=== PATIENT | male | born 1950 | race Caucasian/White ===

== ENCOUNTER 2020-04-11 11:15 | Emergency (ER) | payer BC, MEDICARE, SELFPAY ==
--- NOTE | ~2020-04-11 | XR_ITS ---
EXAMINATION: XR chest 2V EXAM DATE: 04/11/2020 11:46 INDICATION: Chest discomfort, history high blood pressure. TECHNIQUE: Frontal and lateral projections of the chest obtained and reviewed. Comparison is made to prior examination from 03/24/2018. FINDINGS: Sternotomy wires with some breaks and fragmentation. Similar appearance to prior study. Th e lungs are clear. There are no pleural effusions. The cardiomediastinal silhouette is within [place] limits. There is no pneumothorax suspected. The bones and soft tissues are unremarkable. IMPRESSION: No acute cardiopulmonary findings. Reviewed, dictated and finalized at location B. [employer]
--- NOTE | 2020-04-11 11:17 | ECG_ITS ---
Measurements Intervals [place] Rate: 66 P: 40 TX: 227 QRS: -14 QRSD: 100 T: 126 QT: 386 QTc: 405 Interpretive Statements SINUS RHYTHM WITH FIRST DEGREE AV BLOCK BORDERLINE R WAVE PROGRESSION, ANTERIOR LEADS INFERIOR INFARCT, AGE INDETERMINATE T WAVE ABNORMALITY IN HIGH LATERAL LEADS- CONSIDER ISCHEMIA ABNORMAL ECG Electronically Signed On 04-11-2020 11:35:59 GRADUATE INTERN by Reinier De La Rosa D.O.
[2020-04-11 11:27] VITALS: BP 173/48; PULSE 67; RESP 21; TEMP 36.3; O2SAT 96
[2020-04-11 11:31] VITALS: PULSE 65
--- NOTE | 2020-04-11 11:40 | PC.NURSE ---
1135 - Patient self admin aspirin 81mg #1 this azach
[2020-04-11 11:43] LABS: Basophils Absolute Auto 0.1 K/mm3 (0.0-0.1); Basophils Percent Auto 0.5 % (0.2-1.2); Eosinophils Absolute Auto 0.2 K/mm3 (0-0.3); Hematocrit 48.6 % (42.0-52.0); Hemoglobin 16.1 g/dL (14.0-18.0); Immature Granulocyte Absolute 0.09 K/mm3 (0.00-0.031); Immature Granulocyte Percent A 0.8 % (0-0.5); Lymphocytes Absolute Auto 2.68 K/mm3 (0.9-3.2); Lymphocytes Percent Auto 23.1 % (18.3-44.2); Mean Corpuscular HGB Conc 33.1 g/dl (32-36); Mean Corpuscular Hemoglobin 30.7 pg (26-34); Mean Corpuscular Volume 92.7 fl (80-100); Mean Platelet Volume 10.6 fl (7.4-10.4); Monocytes Absolute Auto 1.3 K/mm3 (0.1-0.6); Monocytes Percent Auto 10.9 % (2.6-8.5); Neutrophils Absolute Auto 7.3 K/mm3 (1.3-6.7); Neutrophils Percent Auto 62.7 % (45.5-73.1); Platelet Count Result 203 k/mm3 (150-375); Red Blood Count 5.24 M/mm3 (4.6-6.20); Red Cell Distribution Width 14.5 % (11.5-14.5); White Blood Count 11.6 K/mm3 (4.5-10.0)
--- NOTE | 2020-04-11 11:51 | PC.NURSE ---
green top rejected per ray in lab, specimen hemolyzed; Krupa ZHOU aware.
[2020-04-11 11:52] LABS: INR 0.9; Prothrombin Time 12.8 Seconds (11.1-14.7)
[2020-04-11 12:14] LABS: Anion Gap 8 mmol/L (8-16); Blood Urea Nitrogen 21 mg/dL (9-20); Calcium 9.6 mg/dL (8.4-10.2); Carbon Dioxide 25 mmol/L (22-30); Chloride 110 mmol/L (98-107); Estimated CRCL calculation 60 ml/min; Estimated Glomerular Filt Rate 55; Glucose 127 mg/dL (75-110); Potassium 4.6 mmol/L (3.4-5.0); Sodium 143 mmol/L (137-145)
[2020-04-11 12:25] LABS: Troponin I 0.022 ng/mL (0.000-0.034)
--- NOTE | 2020-04-11 13:07 | ED.CHESTPAIN ---
HPI - Chest Pain General Chief Complaint: Chest Pain Stated Complaint: Chest Tightness Time Seen by Provider: 04/11/20 11:23 Source: patient Mode of arrival: ambulatory Limitations: no limitations History of Present Illness HPI narrative: 70-year-old male History of coronary artery disease and CABG States that his sternal incision did not heal 100% correctly and sometimes he gets pain related to that if he moves or lies on it wrong Today he had discomfort in that area when he woke up around 7 AM This continued after he went to work at [employer], and his boss noticed him more or less rubbing the uncomfortable area of his chest On questioning there he also complained that his right elbow felt like he hit it on something even though he had not Patient notes that when he originally presented prior to getting cath and subsequently a CABG most of his symptoms were in his right arm and his right elbow, so this represented a red flag and they sent him to the ER for evaluation No other associated symptoms such as shortness of breath palpitations diaphoresis nausea lightheadedness Just took his usual meds today but he does not have his list with him Pertinent past history: prior [place] Related Data Allergies Allergy/AdvReac Type Severity Reaction Status Date / Time No Known Allergies Allergy Unknown Verified 03/24/18 09:49 Review of Systems Review of Systems: All systems reviewed & are unremarkable except as noted in HPI and below Constitutional: Constitutional: Denies chills, Denies fatigue, Denies fever(s), Denies headache(s) and Denies weakness Eyes: Eyes: Reports no additional eye complaints and Denies change in vision ENT: Denies headache(s), Denies epistaxis, Denies nasal congestion and Denies sore throat Cardiovascular: Cardiovascular: Reports chest pain, Denies leg edema, Reports radiating jaw, neck or arm pain, Denies palpitations and Denies dyspnea Respiratory: Respiratory: Denies cough, Denies dyspnea and Denies wheezing Gastrointestinal: Gastrointestinal: Denies abdominal pain, Denies diarrhea, Denies nausea and Denies vomiting Genitourinary: Genitourinary: Denies hematuria, Denies dysuria and Denies urinary frequency Musculoskeletal: Musculoskeletal: Denies deformity, Reports arthralgias, Denies joint swelling, Denies muscle weakness and Denies numbness Integumentary/Breasts: Skin/Breast: Denies rash and Denies wounds Neurologic: Denies headache(s), Denies focal weakness, Denies numbness and Denies weakness Psychiatric: Psychiatric: Reports no additional psychiatric complaints Endocrine: Endocrine: Denies fatigue and Denies palpitations Hematologic/Lymphatic: Hematologic/Lymphatic: Denies easy bleeding and Denies easy bruising Allergic/Immunologic: Allergic/Immunologic: Denies wheezing Exam Const: General: no acute distress, well developed, alert and awake Nutritional Appearance: well nourished Orientation/consciousness: patient oriented x3 (alert) Limitations: no limitations HENMT: Head: normocephalic and atraumatic Ears: external ears normal General nose exam: No nasal discharge present and no epistaxis Face and sinus: face symmetric Eyes: Conjunctivae: conjunctivae normal Sclera: sclerae normal EOM: EOMs intact bilaterally Neck: Neck: normal visual inspection, supple and no JVD Chest: Chest palpation & inspection: deferred Other: There is tenderness at the right lower sternum and costochondral junction, and there is a diastases or incisional hernia in the upper abdomen Resp: Effort & Inspection: normal respiratory effort Auscultation: clear to auscultation bilaterally, no rales, no rhonchi, no wheezes and other (BS =) Cardio: Rate: regular rate Rhythm: regular rhythm Heart sounds: no gallops and no murmurs GI: Inspection: normal to inspection GI Palp: Yes Soft to palpation and No Tenderness to palpation present (GI) Back/Spine/Pelvis: Thoracic/Lumbar Spine: thoracic and lumbar spine normal t
== END 2020-04-11 17:58 | disposition home or self-care (01) ==
PROVIDERS: Emergency Medicine; Emergency Provider Emergency Medicine; PCP Internal Medicine Cardiovascular Disease
DX: R07.89 Other chest pain (principal); R94.31 Abnormal electrocardiogram [ECG] [EKG]
CPT/HCPCS: 36415; 71046; 80048; 84484; 85025; 85610; 85730; 93005; 99284

== ENCOUNTER 2020-05-27 10:00 | Emergency (ER) | payer BC, MEDICARE, SELFPAY ==
[2020-05-27 10:10] VITALS: BP 143/68; PULSE 60; RESP 20; TEMP 36.6; O2SAT 98
--- NOTE | 2020-05-27 10:30 | ECG_ITS ---
Measurements Intervals [place] Rate: 57 P: 50 ME: 244 QRS: 7 QRSD: 106 T: -17 QT: 441 QTc: 431 Interpretive Statements SINUS BRADYCARDIA WITH FIRST DEGREE AV BLOCK CONSIDER ANTERIOR INFARCT, AGE INDETERMINATE INFERIOR INFARCT, AGE INDETERMINATE ABNORMAL ECG Electronically Signed On 05-27-2020 14:26:59 CDT by Reinier De La Rosa D.O.
[2020-05-27 10:56] LABS: Basophils Absolute Auto 0.1 K/mm3 (0.0-0.1); Basophils Percent Auto 0.8 % (0.2-1.2); Eosinophils Absolute Auto 0.2 K/mm3 (0-0.3); Eosinophils Percent Auto 2.6 % (0-4.4); Hematocrit 50.4 % (42.0-52.0); Hemoglobin 16.7 g/dL (14.0-18.0); Immature Granulocyte Absolute 0.09 K/mm3 (0.00-0.031); Lymphocytes Absolute Auto 2.58 K/mm3 (0.9-3.2); Lymphocytes Percent Auto 28.5 % (18.3-44.2); Mean Corpuscular HGB Conc 33.1 g/dl (32-36); Mean Corpuscular Hemoglobin 30.5 pg (26-34); Mean Platelet Volume 10.6 fl (7.4-10.4); Monocytes Absolute Auto 1.1 K/mm3 (0.1-0.6); Monocytes Percent Auto 12.4 % (2.6-8.5); Neutrophils Percent Auto 54.7 % (45.5-73.1); Platelet Count Result 195 k/mm3 (150-375); Red Blood Count 5.48 M/mm3 (4.6-6.20); Red Cell Distribution Width 14.2 % (11.5-14.5); White Blood Count 9.1 K/mm3 (4.5-10.0)
[2020-05-27 11:05] LABS: Anion Gap 6 mmol/L (8-16); Blood Urea Nitrogen 21 mg/dL (9-20); Calcium 9.7 mg/dL (8.4-10.2); Carbon Dioxide 27 mmol/L (22-30); Chloride 109 mmol/L (98-107); Estimated CRCL calculation 58 ml/min; Estimated Glomerular Filt Rate 55; Glucose 139 mg/dL (75-110); Potassium 4.8 mmol/L (3.4-5.0); Sodium 142 mmol/L (137-145)
[2020-05-27 11:24] VITALS: BP 139/56; PULSE 57; RESP 16; O2SAT 98
--- NOTE | 2020-05-27 12:17 | ED.DIZZY ---
HPI - Dizziness General Chief Complaint: Dizziness Stated Complaint: dizziness Time Seen by Provider: 05/27/20 11:29 Source: patient and family Mode of arrival: ambulatory Limitations: no limitations History of Present Illness HPI Narrative: 70-year-old male History of hypertension, high cholesterol Reports that he woke up this morning around 530 or 6 to get ready to go to work and was dizzy He had slight nausea but did not throw up and did not report any other symptoms Specifically, no headache, no visual symptoms, no tinnitus, no vomiting, no weakness, no cp, no palpitations, no sob Any movement or change of position was exacerbating his dizziness and it improved if he sat still with his eyes closed At this time his symptoms are all completely resolved and cannot be elicited by any of the above maneuvers Related Data Home Medications Medication Instructions Recorded Confirmed amlodipine 10 mg PO DAILY 05/27/20 05/27/20 ezetimibe 10 mg PO DAILY 05/27/20 05/27/20 lisinopril 20 mg PO DAILY 05/27/20 05/27/20 rosuvastatin 40 mg PO DAILY 05/27/20 05/27/20 Allergies Allergy/AdvReac Type Severity Reaction Status Date / Time No Known Allergies Allergy Unknown Verified 05/27/20 10:12 Review of Systems Review of Systems: All systems reviewed & are unremarkable except as noted in HPI and below Constitutional: Constitutional: Reports no additional constitutional complaints, Denies chills, Denies fever(s) and Denies headache(s) Eyes: Eyes: Reports no additional eye complaints and Denies change in vision ENT: Reports dizziness, Denies headache(s) and Denies sore throat Cardiovascular: Cardiovascular: Denies chest pain, Denies rapid heart rate and Denies dyspnea Respiratory: Respiratory: Denies cough and Denies dyspnea Gastrointestinal: Gastrointestinal: Denies abdominal pain, Denies diarrhea and Denies vomiting Genitourinary: Genitourinary: Denies dysuria and Denies urinary frequency Musculoskeletal: Musculoskeletal: Denies deformity, Denies arthralgias, Denies joint swelling and Denies numbness Integumentary/Breasts: Skin/Breast: Denies rash and Denies wounds Neurologic: Denies headache(s), Denies focal weakness and Denies numbness Psychiatric: Psychiatric: Reports no additional psychiatric complaints Endocrine: Endocrine: Reports no additional endocrine complaints Hematologic/Lymphatic: Hematologic/Lymphatic: Reports no additional hematologic/lymphatic complaints Allergic/Immunologic: Allergic/Immunologic: Reports no additional allergic/immunologic complaints [facility] Social History Social History Gender identity (if verbalized by the patient): Male Exam Const: General: cooperative, no acute distress and alert Orientation/consciousness: patient oriented x3 (alert) HENMT: Head: normal to inspection, normocephalic and atraumatic Ears: external ears normal and TM's normal bilaterally General nose exam: no epistaxis Other: 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 Eyes: Conjunctivae: conjunctivae normal Pupils: Equal, round and reactive pupils present EOM: EOMs intact bilaterally Other: No nystagmus Neck: Neck: normal visual inspection, supple and no JVD Resp: Effort & Inspection: normal respiratory effort Auscultation: clear to auscultation bilaterally and other (BS =) Cardio: Rate: regular rate Rhythm: regular rhythm Heart sounds: no murmurs Skin: General skin exam: normal color and no rashes or lesions noted Neuro: General: patient oriented x3 (alert) and moves all extremities Cranial nerves: Yes Nystagmus not present Speech: normal speech Gait exam (Neuro): Normal gait present Other: Normal [id number], negative Romberg Extrem: General: normal to inspection Psych: Affect: normal affect Course Course Emergency Course: Discussed with patient that given his hearing loss and the transient nature of his symptoms that peripheral vertigo is his most likely diagnosi
[2020-05-27 12:19] VITALS: BP 132/65; PULSE 56
[2020-05-27 12:21] VITALS: BP 142/73; PULSE 58
[2020-05-27 12:23] VITALS: BP 145/81; PULSE 63
--- NOTE | 2020-05-27 12:58 | PC.NURSE ---
called chem and talked to lilly. Ordered a trop baseline at 12:56
[2020-05-27 13:22] LABS: Troponin I 0.014 ng/mL (0.000-0.034)
[2020-05-27 13:49] VITALS: BP 142/88; PULSE 84; RESP 16; O2SAT 98
== END 2020-05-27 13:55 | disposition home or self-care (01) ==
PROVIDERS: Emergency Provider Emergency Medicine; PCP Internal Medicine Cardiovascular Disease
DX: R42 Dizziness and giddiness (principal); I10 Essential (primary) hypertension; E78.00 Pure hypercholesterolemia, unspecified; I44.0 Atrioventricular block, first degree; R00.1 Bradycardia, unspecified; R94.31 Abnormal electrocardiogram [ECG] [EKG]
CPT/HCPCS: 36415; 80048; 84484; 85025; 93005; 99284

== ENCOUNTER 2021-09-01 19:43 | Observation (INO) | payer OTHER, MEDICARE, SELFPAY ==
[2021-09-01] VITALS (8 sets, daily range): BP systolic 123–148; BP diastolic 57–67; PULSE 62–72; RESP 16–26; TEMP 36.1–36.7; O2SAT 95–98; BMI 35.9
--- NOTE | ~2021-09-01 | XR_ITS ---
EXAMINATION: XR chest 2V Exam Date/Time: 09/01/2021 20:07 CDT HISTORY: MIDLOWER CP, HERNIA W/ BURNING SENSATTION HX CABG/STENTS Comparison: 04/11/2020, 03/24/2018. RESULT: Lines, tubes, and devices: Multiple fractured sternotomy wires, position unchanged given differences and technique. Lungs and pleura: Clear. Cardiomediastinal silhouette: Stable cardiomediastinal silhouette. Other: No acute osseous or upper abdominal finding. IMPRESSION: No acute cardiopulmonary process. Reviewed, dictated and finalized at location K.
--- NOTE | 2021-09-01 19:44 | ECG_ITS ---
Measurements Intervals [place] Rate: 72 P: 87 [place]: 91 QRS: -5 QRSD: 72 T: 87 QT: 369 QTc: 405 Interpretive Statements SINUS RHYTHM BORDERLINE AV CONDUCTION DELAY POOR R WAVE PROGRESSION, CONSIDER ANTERIOR INFARCT INFERIOR INFARCT, AGE INDETERMINATE BORDERLINE ST-T WAVE ABNORMALITY- HIGH LATERAL LEADS BASELINE WANDER- V1 ABNORMAL ECG Electronically Signed On 09-01-2021 23:21:27 CDT by Reinier De La Rosa D.O.
--- NOTE | 2021-09-01 19:52 | ECG_ITS ---
Measurements Intervals [place] Rate: 68 P: 104 [place]: 220 QRS: 203 QRSD: 101 T: 72 QT: 393 QTc: 420 Interpretive Statements SINUS RHYTHM WITH FIRST DEGREE AV BLOCK ARM LEADS REVERSED BORDERLINE R WAVE PROGRESSION, ANTERIOR LEADS INFERIOR INFARCT, AGE INDETERMINATE ABNORMAL ECG Electronically Signed On 09-01-2021 23:22:34 CDT by Reinier De La Rosa D.O.
[2021-09-01 20:07] LABS: Basophils Absolute Auto 0.1 K/mm3 (0.0-0.1); Basophils Percent Auto 0.7 % (0.2-1.2); Eosinophils Absolute Auto 0.3 K/mm3 (0-0.3); Eosinophils Percent Auto 3.2 % (0-4.4); Hematocrit 47.6 % (42.0-52.0); Hemoglobin 15.1 g/dL (14.0-18.0); Immature Granulocyte Absolute 0.15 K/mm3 (0.00-0.031); Immature Granulocyte Percent A 1.5 % (0-0.5); Lymphocytes Absolute Auto 3.04 K/mm3 (0.9-3.2); Lymphocytes Percent Auto 30.5 % (18.3-44.2); Mean Corpuscular HGB Conc 31.7 g/dl (32-36); Mean Corpuscular Hemoglobin 28.9 pg (26-34); Mean Corpuscular Volume 91.2 fl (80-100); Mean Platelet Volume 10.5 fl (7.4-10.4); Monocytes Absolute Auto 1.2 K/mm3 (0.1-0.6); Neutrophils Absolute Auto 5.2 K/mm3 (1.3-6.7); Neutrophils Percent Auto 52.1 % (45.5-73.1); Platelet Count Result 230 k/mm3 (150-375); Red Blood Count 5.22 M/mm3 (4.6-6.20); Red Cell Distribution Width 15.7 % (11.5-14.5)
[2021-09-01 20:17] LABS: INR 1.1; Prothrombin Time 13.8 Seconds (11.1-14.7)
[2021-09-01 20:18] LABS: Alanine Aminotransferase 26 U/L (6-50); Albumin Level 4.3 g/dL (3.5-5.1); Alkaline Phosphatase 81 U/L (38-126); Anion Gap 7 mmol/L (8-16); Aspartate Amino Transferase 27 U/L (17-59); Bilirubin,Total 0.2 mg/dL (0.2-1.3); Blood Urea Nitrogen 25 mg/dL (9-20); Calcium 8.7 mg/dL (8.4-10.2); Carbon Dioxide 22 mmol/L (22-30); Chloride 112 mmol/L (98-107); Estimated Glomerular Filt Rate 50; Glucose 218 mg/dL (65-110); Lipase 101 U/L (23-300); Partial Thromboplastin Time 38.4 SECONDS (22.3-36.8); Potassium 4.8 mmol/L (3.4-5.0); Sodium 141 mmol/L (137-145)
[2021-09-01 20:29] LABS: Troponin I 0.021 ng/mL (0.000-0.034)
[2021-09-01] MEDS: ASPIRIN 81 MG CHEWABLE TABLET 324 MG PO (20:46)
--- NOTE | 2021-09-01 21:04 | ED.GENADULT ---
HPI - General Adult General Chief complaint: Chest Pain Stated complaint: chest pain Time Seen by Provider: 09/01/21 20:54 History of Present Illness HPI narrative: Patient 71-year-old gentleman who presents the emergency department with chief complaint of chest burning. Patient reports that he has history of cardiac disease and also has history of a hiatal hernia the patient states that he has had a bypass and has had stents before in the past the patient states over the last week he has been having intermittent episodes of a burning-like sensation in the epigastric region/low chest patient states that it is improved whenever he belches and spontaneously starts on its own. Patient states that for about a week he has been having the symptoms and that this afternoon it became pretty well constant has been ongoing for several hours. Patient reports this feels different from whenever he has had issues with his heart in the past. Related Data Home Medications Medication Instructions Recorded Confirmed amlodipine 10 mg tablet 10 mg PO DAILY 05/27/20 05/27/20 ezetimibe 10 mg tablet 10 mg PO DAILY 05/27/20 05/27/20 lisinopril 20 mg tablet 20 mg PO DAILY 05/27/20 05/27/20 rosuvastatin 40 mg tablet 40 mg PO DAILY 05/27/20 05/27/20 Allergies Allergy/AdvReac Type Severity Reaction Status Date / Time No Known Allergies Allergy Unknown Verified 09/01/21 20:46 Review of Systems Review of Systems: A 10 system review of systems was completed on the patient and is negative except for what is stated in the HPI. Nursing and ancillary documentation was reviewed. [facility] Social History Social History Gender identity (if verbalized by the patient): Male Exam Narrative: GENERAL: Well-appearing, well-nourished, and in no acute distress. HEAD: Normocephalic, atraumatic. EYES: PERRLA and EOMI. ENT: Nares clear, no rhinorrhea or epistaxis. Mucous membranes moist. NECK: Supple. CHEST: Clear to auscultation. No respiratory distress. HEART: Regular rate and rhythm. No murmur heard. Normal peripheral pulses. ABDOMEN: Soft, nontender, nondistended, normal active bowel sounds. EXTREMITIES: Normal range of motion. No edema. SKIN: Warm, dry, no rash. NEURO: No focal deficits. Alert and oriented x3. PSYCH: Normal mood and affect. Course Course Emergency Course: EKG shows a sinus rhythm rate of 68 there is J-point elevation and nonspecific ST segment abnormality Patient's initial troponin is below the positive cutoff given the patient's significant past medical history and risk factors the patient has a heart score of 5. Given this the patient will be admitted for observation Vital Signs Vital signs: Vital Signs Temperature 36.7 C 09/01/21 19:47 Pulse Rate 72 09/01/21 19:47 Respiratory Rate 16 09/01/21 19:47 Blood Pressure 148/66 H 09/01/21 19:47 Pulse Oximetry 98 09/01/21 19:47 Oxygen Delivery Room Air 09/01/21 19:47 Temperature 36.7 C 09/01/21 19:47 Pulse Rate 67 09/01/21 20:45 Respiratory Rate 26 H 09/01/21 20:45 Blood Pressure 123/57 L 09/01/21 20:45 Pulse Oximetry 95 09/01/21 20:45 Oxygen Delivery Room Air 09/01/21 19:47 Medical Decision Making Vital Signs Vital Signs: Vital Signs Temperature 36.7 C 09/01/21 19:47 Pulse Rate 72 09/01/21 19:47 Respiratory Rate 16 09/01/21 19:47 Blood Pressure 148/66 H 09/01/21 19:47 Pulse Oximetry 98 09/01/21 19:47 Oxygen Delivery Room Air 09/01/21 19:47 Temperature 36.7 C 09/01/21 19:47 Pulse Rate 67 09/01/21 20:45 Respiratory Rate 26 H 09/01/21 20:45 Blood Pressure 123/57 L 09/01/21 20:45 Pulse Oximetry 95 09/01/21 20:45 Oxygen Delivery Room Air 09/01/21 19:47 Lab Data Result diagrams: 09/01/21 19:59 09/01/21 19:59 Labs: Lab Results 09/01/21 09/01/21 09/01/21 Range/Units 19:59 19:59 19:59 WBC 10
[2021-09-01] MEDS: BELLADONNA ALK/PHENOB ELIX 10 ML, MAG HYDROX/ALUMINUM HYD/SIMETH 30 ML, LIDOCAINE HCL 2... PO (21:09)
--- NOTE | 2021-09-01 22:35 | PC.NURSE ---
This patient, Brandon Miller Jr., was admitted to IMU Room 213-01 at 2230. Patient/family oriented to hospital policies and general routines including ID bracelet, bed and alarms, visiting hours, pain management, procedures, bathroom and other care routines, personal items, smoking policy, room service/diet, and visiting hours. Information on how to activate the Rapid Response Team has been discussed. Patient/Family are encouraged to report perceived risks to care and to ask questions if they do not understand what they are told or what they should do.
[2021-09-01 23:45] LABS: Troponin I 0.026 ng/mL (0.000-0.034)
[2021-09-02] VITALS: PULSE 60; O2SAT 96
--- NOTE | 2021-09-02 00:34 | PM.IMHP ---
H&P: HPI History of Present Illness Date/Time: 09/02/21 00:34 Chief Complaint: Chest discomfort. Narrative: This is a 71-year-old male with past medical history significant for coronary artery disease status post coronary artery bypass graft, hypertension, dyslipidemia, tobacco dependence patient smokes half a pack of cigarettes daily. Patient presents to the emergency room due to chest discomfort explains feels like indigestion denies any lightheadedness, dizziness, shortness of breath, PND, orthopnea, calves pain, syncope or near syncope, no chest pain with activity, no fevers, no chills, no pedal swelling no ankle swelling no leg swelling, patient was doing his job which is very light activity, has been in his usual state of health up until this time pain is nonradiating, is constant, denies any pounding of the chest or fluttery feeling. [facility] Social History Social History Smoking status: Never smoker Alcohol intake: never Substance use: never Gender identity (if verbalized by the patient): Male Spiritual care concerns: No Meds Home Medications and Allergies Home Medications Medication Instructions Recorded Confirmed Type amlodipine 10 mg tablet 10 mg PO DAILY 05/27/20 09/01/21 History ezetimibe 10 mg tablet 10 mg PO DAILY 05/27/20 09/01/21 History lisinopril 20 mg tablet 20 mg PO DAILY 05/27/20 09/01/21 History rosuvastatin 40 mg tablet 40 mg PO DAILY 05/27/20 09/01/21 History Allergies Allergy/AdvReac Type Severity Reaction Status Date / Time No Known Allergies Allergy Unknown Verified 09/01/21 20:46 Vital Signs Vital Signs - 24 hr 09/01/21 19:47 09/01/21 20:45 09/01/21 21:52 Temperature 98.1 F Pulse Rate 72 67 63 Respiratory Rate 16 26 H 22 H Blood Pressure 148/66 H 123/57 L Pulse Oximetry 98 95 96 Oxygen Delivery Room Air 09/01/21 22:01 09/01/21 22:14 09/01/21 22:35 Temperature 97 F L Pulse Rate 63 62 Respiratory Rate 22 H 20 Blood Pressure 130/67 147/64 H Pulse Oximetry 96 96 Oxygen Delivery 09/01/21 22:32 09/01/21 22:51 Temperature Pulse Rate 70 Respiratory Rate Blood Pressure Pulse Oximetry 96 Oxygen Delivery Room Air H&P: Results Labs Labs: Short CBC 09/01/21 Range/Units 19:59 WBC 10.0 (4.5-10.0) K/mm3 Hgb 15.1 (14.0-18.0) g/dL Hct 47.6 (42.0-52.0) % Plt Count 230 (150-375) k/mm3 BMP 09/01/21 19:59 Sodium 141 Potassium 4.8 Chloride 112 H Carbon Dioxide 22 BUN 25 H Creatinine 1.40 H Glucose 218 H Calcium 8.7 Cardiac Enzymes 09/01/21 09/01/21 Range/Units 19:59 22:56 Troponin I 0.021 0.026 D (0.000-0.034) ng/mL Liver Function 09/01/21 Range/Units 19:59 Total Bilirubin 0.2 (0.2-1.3) mg/dL AST 27 (17-59) U/L ALT 26 (6-50) U/L Alkaline Phosphatase 81 (38-126) U/L Albumin 4.3 (3.5-5.1) g/dL Assessment and Plan Assessment and plan (1) Chest discomfort: Code(s): R07.89 - Other chest pain Status: Acute Assessment and Plan: Admit to IMU Serial cardiac enzymes Continue to monitor EKG reviewed Cardiology consult (2) Coronary artery disease involving autologous artery coronary bypass graft: Code(s): I25.810 - Atherosclerosis of coronary artery bypass graft(s) without angina pectoris Status: Acute Assessment and Plan: Patient is status post coronary artery bypass graft roughly a year and half ago Continue home meds Continue to monitor (3) Tobacco dependence: Code(s): F17.200 - Nicotine dependence, unspecified, uncomplicated Status: Acute Assessment and Plan: Nicotine patch as needed
[2021-09-02 02:00] VITALS: PULSE 61
[2021-09-02 03:00] LABS: Troponin I 0.027 ng/mL (0.000-0.034)
[2021-09-02 04:00] VITALS: BP 141/64; PULSE 72; PULSE 98; RESP 20; TEMP 36.6; O2SAT 98
[2021-09-02] MEDS: ENOXAPARIN 120 MG/0.8 ML SYRINGE 105 MG SUB-Q (04:39)
[2021-09-02 06:00] VITALS: PULSE 63
[2021-09-02 08:00] VITALS: BP 146/55; PULSE 54; PULSE 56; RESP 16; TEMP 36.1; O2SAT 99
--- NOTE | 2021-09-02 08:56 | PM.CNCAR ---
Assessment and Plan Assessment and plan (1) Chest pain: Code(s): R07.9 - Chest pain, unspecified Status: Acute (2) Coronary artery disease involving autologous artery coronary bypass graft: Code(s): I25.810 - Atherosclerosis of coronary artery bypass graft(s) without angina pectoris Status: Acute Plan This is a 71-year-old man known to have coronary disease with previous myocardial infarction. He underwent surgical revascularization several years ago and has been doing relatively well since then. He enters the hospital with symptoms that are not suggestive of or concerning for myocardial ischemia in my opinion. His symptoms are not exertional they are likely from his hiatal hernia as they are relieved with belching. No objective evidence of acute coronary syndrome. I do not believe he needs to remain hospitalized for ischemia workup. He has regular follow-up in our office already scheduled with my partner. He can be discharged home at this point in my opinion. Igor Mijares MD [facility] History of Present Illness History of Present Illness Consult date/time: 09/02/21 08:56 Consult reason: chest pain Reason For Visit: Chest Pain Narrative: This is a 71-year-old man I am seeing at the request of the hospitalist because of some chest pain with which he was seen in the emergency room last evening and then admitted to IMU overnight. He feels well this morning and does not have any complaints. Yesterday he noticed a burning like low substernal to epigastric discomfort that started while he was at work. He has been having episodes like this off and on for about a week or 2. The episodes seem to be relieved with belching and rubbing the epigastrium. He has a history of heart disease so when this occurred yesterday while he was at work he decided to come to the emergency room in the evening and get evaluated. The patient has no radiation of this pain to any other location it is not associated with diaphoresis or air hunger. He was not greatly concerned this was is cardiac pain but given his known history he came in for evaluation.. He states that he is known to have coronary artery disease for something like 12/13 years. He states that he had a previous myocardial infarction and has had several previous percutaneous revascularization procedures done. About 3 years ago he states he was referred for surgical revascularization which was done over at [facility]. He has not had any card your problems since then that he can recall. He says he follows regularly in the office with my partner, Dr. Ansari. He not having any orthopnea PND or edema he has not had any palpitations nor syncope. His electrocardiogram in the hospital shows sinus rhythm with evidence of previous inferior infarction. He has 3 troponin sets that are normal. Review of Systems Constitutional: Constitutional: Reports no additional constitutional complaints Eyes: Eyes: Reports no additional eye complaints ENT: Reports system reviewed and no additional complaints, except as documented Cardiovascular: Cardiovascular: Reports as per HPI Respiratory: Respiratory: Reports no additional respiratory complaints Gastrointestinal: Gastrointestinal: Reports as per HPI Musculoskeletal: Musculoskeletal: Reports no additional musculoskeletal complaints Integumentary/Breasts: Skin/Breast: Reports system reviewed and no additional complaints, except as docu Neurologic: Reports system reviewed and no additional complaints, except as documented Endocrine: Endocrine: Reports no additional endocrine complaints Hematologic/Lymphatic: Hematologic/Lymphatic: Reports no additional hematologic/lymphatic complaints Allergic/Immunologic: Allergic/Immunologic: Reports no additional allergic/immunologic complaints [facility] Social History Social History Smoking status: Never smoker Alc
--- NOTE | 2021-09-02 10:00 | PC.NURSE ---
In anticipation of discharge, patient prefers to take daily medications upon return home.
--- NOTE | 2021-09-02 10:27 | PM.DS ---
DS: Admitting Diagnosis Discharge Date 09/02/2021 Admitting Diagnosis Chest pain DS: Discharge Diagnosis Discharge Diagnosis (1) Chest discomfort: Code(s): R07.89 - Other chest pain Status: Acute Assessment and Plan: Epigastric in origin. She had cardiac enzyme was done which came back negative. Symptoms are atypical and suggestive more GI origin and/or related to his umbilical hernia. He has status post CABG chest wall has not completely healed and noted to have non union his surgical incision wound. There is also associated epigastric area hernia with diastasis Add Pepcid at bedtime. Escalate to Prilosec of symptoms not related with this. Cardiology consulted and recommendations reviewed. He has follow-up appointment with head lineman as an outpatient basis. No need for ischemic workup because of atypical pain. (2) Coronary artery disease involving autologous artery coronary bypass graft: Code(s): I25.810 - Atherosclerosis of coronary artery bypass graft(s) without angina pectoris Status: Acute Assessment and Plan: Patient is status post coronary artery bypass graft roughly a year and half ago Continue home meds Continue to monitor Lost follow-up with cardiothoracic surgeon. Lives in [place] and will provide information about the cardiothoracic surgeon he can follow-up with at discharge (3) Tobacco dependence: Code(s): F17.200 - Nicotine dependence, unspecified, uncomplicated Status: Acute Assessment and Plan: Nicotine patch as needed DS: Summary Hospital Course Hospital Course: See above Time Spent with Patient Time attestation: Total time spent providing and/or coordinating discharge services: 40 minutes Exam Narrative: GENERAL: The patient is well developed, not in acute distress HEENT: Nonicteric sclerae, PERRLA, EOMI. Oropharynx clear. Moist mucous membranes. Conjunctivae appear well perfused. CHEST: Chest wall is nontender. Midline chest wall Surgical incision for CABG noted with nonhealing with epigastric hernia noted HEART: Regular rate and rhythm without murmur, rubs, or gallops LUNGS: Clear to auscultation bilaterally. no respiratory distress ABDOMEN: Soft, positive bowel sounds, non-tender, no organomegaly. SKIN: No rash, no excessive bruising, petechiae, or purpura. NEUROLOGIC: Cranial nerves II-XII intact, alert and oriented x 3, no gross motor deficits EXTREMITIES: no edema, cyanosis or clubbing Extrem: General: normal exam except as noted and no edema DS: Data Data Completed and Pending Labs on day of discharge: Labs from last 24 hours 09/02/21 09/01/21 09/01/21 02:05 22:56 19:59 WBC RBC Hgb Hct MCV MCH MCHC RDW Plt Count MPV Immature Gran % (Auto) Neut % (Auto) Lymph % (Auto) [place] % (Auto) Eos % (Auto) Baso % (Auto) Lymph # (Auto) [place] # (Auto) Eos # (Auto) Baso # (Auto) Abs Immat Gran (auto) Absolute Neuts (auto) Absolute Nucleated RBC Nucleated RBC % PT INR APTT Sodium 141 Potassium 4.8 Chloride 112 H Carbon Dioxide 22 Anion Gap 7 L BUN 25 H Creatinine 1.40 H Estim Creat Clear Calc Not Reportable Estimated GFR 50 L Glucose 218 H Calcium 8.7 Total Bilirubin 0.2 AST 27 ALT 26 Alkaline Phosphatase 81 Troponin I 0.027 0.026 D 0.021 Total Protein 7.0 Albumin 4.3 Lipase 101 09/01/21 09/01/21 19:59 19:59 WBC 10.0 RBC 5.22 Hgb 15.1 Hct 47.6 MCV 91.2 MCH 28.9 MCHC 31.7 L RDW 15.7 H Plt Count 230 MPV 10.5 H Immature Gran % (Auto) 1.5 H Neut % (Auto) 52.1 Lymph % (Auto) 30.5 [place] % (Auto) 12.0 H Eos % (Auto) 3.2 Baso % (Auto) 0.7 Lymph # (Auto) 3.04 [place] # (Auto) 1.2 H Eos # (Auto) 0.3 Baso # (Auto) 0.1 Abs Immat Gran (auto) 0.15 H Absolute Neuts (auto) 5.2 Absolute Nucleated RBC 0.0 Nucleated RBC %
== END 2021-09-02 11:01 | disposition home or self-care (01) ==
LOC: ANHED 21:45 → ANHIMU 21:51
PROVIDERS: Emergency Medicine; Admitting Provider Internal Medicine; Emergency Provider Emergency Medicine; PCP Internal Medicine Cardiovascular Disease; Visit Provider Internal Medicine
DX: R07.89 Other chest pain (principal); I25.810 Atherosclerosis of coronary artery bypass graft(s) without angina pectoris; F17.210 Nicotine dependence, cigarettes, uncomplicated; I25.2 Old myocardial infarction; K44.9 Diaphragmatic hernia without obstruction or gangrene; I10 Essential (primary) hypertension; E78.5 Hyperlipidemia, unspecified; R79.89 Other specified abnormal findings of blood chemistry; I44.0 Atrioventricular block, first degree; I45.89 Other specified conduction disorders; R94.31 Abnormal electrocardiogram [ECG] [EKG]; Z79.82 Long term (current) use of aspirin; Z79.899 Other long term (current) drug therapy; T81.89XA Other complications of procedures, not elsewhere classified, initial encounter; Y83.8 Other surgical procedures as the cause of abnormal reaction of the patient, or of later complication, without mention of misadventure at the time of the procedure
CPT/HCPCS: 36415; 71046; 80053; 83690; 84484; 85025; 85610; 85730; 93005; 96372; 99285; A9270; G0378; J1650

== ENCOUNTER 2021-11-10 07:20 | Emergency (ER) | payer OTHER, MEDICARE, SELFPAY ==
--- NOTE | ~2021-11-10 | XR_ITS ---
XR chest 2V 11/10/2021 08:24 Indication: Chest pain. Right scapular pain. Procedure: 2 view chest Comparison: Comparison to multiple prior studies sequentially, with oldest reviewed study dated 02/2015. Findings: Status post median sternotomy for CABG. Heart size normal. No focal air space disease, pulm onary edema, pleural effusion or suspected pneumothorax. No acute osseous abnormality. Impression: 1: No acute cardiopulmonary disease. Reviewed, dictated and finalized at location A. Impression: 1: No acute cardiopulmonary disease.
[2021-11-10 07:24] VITALS: BP 160/68; PULSE 63; RESP 16; O2SAT 98
--- NOTE | 2021-11-10 08:00 | ECG_ITS ---
Measurements Intervals [place] Rate: 56 P: 68 NH: 235 QRS: -23 QRSD: 104 T: 126 QT: 432 QTc: 420 Interpretive Statements SINUS BRADYCARDIA WITH FIRST DEGREE AV BLOCK ANTERIOR INFARCT, AGE INDETERMINATE INFERIOR INFARCT, AGE INDETERMINATE ST-T WAVE ABNORMALITY IN HIGH LATERAL LEADS- CONSIDER ISCHEMIA BASELINE ARTIFACT- I, III, V2 ABNORMAL ECG COMPARED TO ECG 09/01/2021 19:54:42 SINUS BRADYCARDIA NOW PRESENT Electronically Signed On 11-10-2021 8:19:09 CDT by Reinier De La Rosa D.O.
--- NOTE | 2021-11-10 08:21 | PC.NURSE ---
pt to XRAY at this time.
[2021-11-10 08:26] LABS: Basophils Absolute Auto 0.1 K/mm3 (0.0-0.1); Basophils Percent Auto 0.8 % (0.2-1.2); Eosinophils Absolute Auto 0.3 K/mm3 (0-0.3); Eosinophils Percent Auto 3.3 % (0-4.4); Hematocrit 49.2 % (42.0-52.0); Hemoglobin 15.9 g/dL (14.0-18.0); Lymphocytes Absolute Auto 2.67 K/mm3 (0.9-3.2); Lymphocytes Percent Auto 25.8 % (18.3-44.2); Mean Corpuscular HGB Conc 32.3 g/dl (32-36); Mean Corpuscular Hemoglobin 29.8 pg (26-34); Mean Corpuscular Volume 92.3 fl (80-100); Mean Platelet Volume 10.3 fl (7.4-10.4); Monocytes Absolute Auto 1.4 K/mm3 (0.1-0.6); Neutrophils Absolute Auto 5.8 K/mm3 (1.3-6.7); Neutrophils Percent Auto 56.1 % (45.5-73.1); Platelet Count Result 207 k/mm3 (150-375); Red Blood Count 5.33 M/mm3 (4.6-6.20); Red Cell Distribution Width 15.2 % (11.5-14.5); White Blood Count 10.4 K/mm3 (4.5-10.0)
[2021-11-10 08:37] LABS: Prothrombin Time 13.2 Seconds (11.1-14.7)
[2021-11-10 08:38] LABS: Partial Thromboplastin Time 38.2 SECONDS (22.3-36.8)
[2021-11-10 08:46] LABS: Alanine Aminotransferase 20 U/L (6-50); Albumin Level 4.4 g/dL (3.5-5.1); Alkaline Phosphatase 76 U/L (38-126); Anion Gap 8 mmol/L (8-16); Aspartate Amino Transferase 22 U/L (17-59); Bilirubin,Total 0.4 mg/dL (0.2-1.3); Blood Urea Nitrogen 13 mg/dL (9-20); Carbon Dioxide 27 mmol/L (22-30); Chloride 104 mmol/L (98-107); Estimated CRCL calculation 59 ml/min; Estimated Glomerular Filt Rate 50; Glucose 128 mg/dL (65-110); Potassium 4.3 mmol/L (3.4-5.0); Sodium 139 mmol/L (137-145)
[2021-11-10 08:57] LABS: Troponin I 0.024 ng/mL (0.000-0.034)
[2021-11-10] MEDS: KETOROLAC 15 MG/ML VIAL (*BKC) IV PUSH (09:02)
[2021-11-10 09:21] VITALS: BP 157/63; PULSE 61; RESP 20; O2SAT 97
--- NOTE | 2021-11-10 09:23 | ED.GENADULT ---
HPI - General Adult General Chief complaint: Extremity Problem,Nontraumatic Stated complaint: R UPPER BACK/ARM PAIN Time Seen by Provider: 11/10/21 07:25 History of Present Illness HPI narrative: Patient is a 71-year-old male who presents ER with pain in his right shoulder. Began this morning and radiates down his arm. Woke up with it at 12 AM. He does do a lot of physical labor but cannot remember an actual injury. He has history of heart disease and sees Dr. Ansari. Because of his history of heart disease he went to be evaluated. No chest pain or chest pressure. No exertional chest discomfort. No diaphoresis or dyspnea. Has not tried any pain medication. Related Data Home Medications Medication Instructions Recorded Confirmed amlodipine 10 mg tablet 10 mg PO DAILY 05/27/20 09/01/21 ezetimibe 10 mg tablet 10 mg PO DAILY 05/27/20 09/01/21 lisinopril 20 mg tablet 20 mg PO DAILY 05/27/20 09/01/21 rosuvastatin 40 mg tablet 40 mg PO DAILY 05/27/20 09/01/21 Allergies Allergy/AdvReac Type Severity Reaction Status Date / Time No Known Allergies Allergy Unknown Verified 11/10/21 07:29 Review of Systems Review of Systems: All systems reviewed & are unremarkable except as noted in HPI and below Constitutional: Constitutional: Denies chills, Denies fatigue and Denies fever(s) ENT: Denies nasal congestion and Denies sore throat Cardiovascular: Cardiovascular: Denies chest pain, Denies rapid heart rate and Reports radiating jaw, neck or arm pain Respiratory: Respiratory: Denies cough and Denies dyspnea Gastrointestinal: Gastrointestinal: Denies abdominal pain, Denies nausea and Denies vomiting Musculoskeletal: Musculoskeletal: Reports back pain, Reports arthralgias, Denies joint swelling and Denies muscle cramps Neurologic: Denies headache(s), Denies focal weakness and Denies numbness PMFSH Past Medical History Medical History (Updated 11/10/21 @ 09:39 by Bryan Newman MD) Bladder cancer Coronary artery disease involving autologous artery coronary bypass graft Hypertension Surgical History Surgical History (Updated 11/10/21 @ 09:39 by Bryan Newman MD) History of coronary angioplasty with insertion of stent History of tonsillectomy Hx of CABG Social History Social History Smoking status: Never smoker Alcohol intake: never Substance use: never Gender identity (if verbalized by the patient): Male Spiritual care concerns: No Exam Narrative: GENERAL: Well-appearing, well-nourished, and in no acute distress. HEAD: Normocephalic, atraumatic. NECK: Supple. Mild right paraspinal muscular tenderness. No midline tenderness to C-spine. CHEST: Clear to auscultation. No respiratory distress. HEART: Bradycardic and regular. Normal peripheral pulses. Back: No T-spine tenderness. There is paraspinal muscular tenderness along the border of the scapula on the right side. No left side paraspinal muscular tenderness. ABDOMEN: Soft, nontender, nondistended. EXTREMITIES: Normal range of motion. No edema. SKIN: Warm, dry, no rash. NEURO: Alert and oriented x3. PSYCH: Normal mood and affect. Course Course Emergency Course: Patient informed of results. Pain resolved with Toradol. Symptoms seem very musculoskeletal as opposed to cardiac in nature. Discharge. Vital Signs Vital signs: Vital Signs Pulse Rate 63 11/10/21 07:24 Respiratory Rate 16 11/10/21 07:24 Blood Pressure 160/68 H 11/10/21 07:24 Pulse Oximetry 98 11/10/21 07:24 Oxygen Delivery Room Air 11/10/21 07:24 Pulse Rate 61 11/10/21 09:21 Respiratory Rate 20 11/10/21 09:21 Blood Pressure 157/63 H 11/10/21 09:21 Pulse Oximetry 97 11/10/21 09:21 Oxygen Delivery Room Air 11/10/21 07:24 Medical Decision Making Vital Signs Vital Signs: Vital Signs Pulse Rate 63 11/10/21 07:24 Respiratory Rate 16 11/10/21 07:24 Blood Pre
== END 2021-11-10 10:01 | disposition home or self-care (01) ==
PROVIDERS: Emergency Provider Emergency Medicine
DX: S29.012A Strain of muscle and tendon of back wall of thorax, initial encounter (principal); I25.810 Atherosclerosis of coronary artery bypass graft(s) without angina pectoris; I10 Essential (primary) hypertension; Z85.51 Personal history of malignant neoplasm of bladder; Z95.1 Presence of aortocoronary bypass graft; Z95.5 Presence of coronary angioplasty implant and graft; R00.1 Bradycardia, unspecified; I44.0 Atrioventricular block, first degree; R94.31 Abnormal electrocardiogram [ECG] [EKG]; M79.601 Pain in right arm; X58.XXXA Exposure to other specified factors, initial encounter
CPT/HCPCS: 36415; 71046; 80053; 84484; 85025; 85610; 85730; 93005; 96374; 99284; J1885

== ENCOUNTER 2022-03-12 11:25 | Emergency (ER) | payer OTHER, MEDICARE, SELFPAY ==
[2022-03-12] VITALS (12 sets, daily range): BP systolic 133–153; BP diastolic 68–72; PULSE 61–93; RESP 15–22; TEMP 36.6; O2SAT 96–99
--- NOTE | ~2022-03-12 | XR_ITS ---
EXAMINATION: XR chest 2V DATE: 03/12/2022 12:39 INDICATION: Dizziness and left arm tingling TECHNIQUE: PA and lateral views of the chest were obtained. COMPARISON: Chest radiograph dated 11/10/2021 and 03/24/2018 FINDINGS: Heart size is normal. Median sternotomy wires and mediastinal surgical clips are seen, likely from pr ior coronary artery bypass grafting. Chronic indistinct left heart border suggesting either small lef t pericardial fat pad and/or lingular atelectasis/scarring. No new airspace opacities, pulmonary mc a, pleural effusion or pneumothorax. Mild thoracic spondylosis. IMPRESSION: 1. Stable appearance of opacities along the left heart border consistent with small left paracardial fat pad and/or lingular atelectasis/scarring. No acute cardiopulmonary disease. Reviewed, dictated and finalized at location B. ING COACH IMPRESSION: 1. Stable appearance of opacities along the left heart border consistent with s mall left paracardial fat pad and/or lingular atelectasis/scarring. No acute ca rdiopulmonary disease.
--- NOTE | ~2022-03-12 | XR_ITS ---
EXAMINATION:XR_CERV2-3V_CR DATE: 03/12/2022 12:39 INDICATION: Neck pain and left upper extremity paresthesias TECHNIQUE: AP, lateral, lateral swimmers and odontoid views of the cervical spine are provided. COMPARISON: 08/02/10 FINDINGS: Odontoid is intact with moderate atlantoaxial osteoarthritis. Slight reversal of the normal lordosis in the lower cervical spine. No spondylolisthesis or facet subluxation. Unchanged minimal anterior we dging at C3 and C4. Disc spaces are normal with small anterior endplate osteophytes. Moderate multile tamiko cervical facet and uncovertebral osteoarthritis. Prevertebral soft tissues are normal. Median st ernotomy wires and mediastinal surgical clips are seen, likely from prior coronary artery bypass pravin ting. Visualized apices of the lungs are clear. IMPRESSION: 1. Multilevel moderate cervical facet and uncovertebral osteoarthritis. No acute osseous abnormality. Reviewed, dictated and finalized at location B. RGIST/IMMUNOLOGIST PHYSICIAN IMPRESSION: 1. Multilevel moderate cervical facet and uncovertebral osteoarthritis. No acut e osseous abnormality.
--- NOTE | ~2022-03-12 | CT_ITS ---
EXAMINATION: CT brain wo con DATE: 03/12/2022 12:28 INDICATION: Dizziness TECHNIQUE: Computed tomography (CT) of the head was performed without intravenous contrast. Sagittal and coronal reconstructions were performed. The mA was adjusted according to patient size. Iterative reconstruction technique was employed. The dose-length product was 605.33 mGy-cm. COMPARISON: None FINDINGS: No acute intracranial hemorrhage, acute infarction or abnormal extra axial fluid collection. There is mild scattered white matter hypoattenuation consistent with chronic small vessel ischemic di sease. Symmetric prominence of the sulci consistent with mild age-appropriate diffuse cerebral volume loss. Ventricles are normal and symmetric. No mass/mass effect. The orbits, paranasal sinuses and ma stoid air cells are normal. IMPRESSION: 1. No acute intracranial process. 2. Age-related changes including mild diffuse volume loss and mild scattered white matter hypoattenua tion consistent with chronic small vessel ischemic disease. Reviewed, dictated and finalized at location B. ARE MANAGER IMPRESSION: 1. No acute intracranial process. 2. Age-related changes including mild diffuse volume loss and mild scattered wh ite matter hypoattenuation consistent with chronic small vessel ischemic diseas e.
--- NOTE | 2022-03-12 11:45 | ECG_ITS ---
Measurements Intervals [place] Rate: 58 P: 78 RI: 75 QRS: 12 QRSD: 77 T: 96 QT: 399 QTc: 394 Interpretive Statements SINUS BRADYCARDIA WITH FIRST DEGREE AV BLOCK CONSIDER ANTERIOR INFARCT, AGE INDETERMINATE INFERIOR INFARCT, AGE INDETERMINATE BORDERLINE ST-T WAVE ABNORMALITY- HIGH LATERAL LEADS ABNORMAL ECG COMPARED TO ECG 11/10/2021 08:12:04 ST-T WAVE ABNORMALITY IMPROVED Electronically Signed On 03-12-2022 11:56:40 UROLOGY SURGEON by Reinier De La Rosa D.O.
--- NOTE | 2022-03-12 11:59 | ED.GENADULT ---
HPI - General Adult General Chief complaint: Extremity Problem,Nontraumatic Stated complaint: neck pain with left arm pain and numbness Time Seen by Provider: 03/12/22 11:40 History of Present Illness HPI narrative: 72-year-old male history of coronary artery disease, hypertension, dyslipidemia presents to the emergency room with multiple complaints. Patient states that he has been experiencing numbness and tingling in his left arm for a week. Also reports discomfort in his lower back that radiates down his right leg. States at 3:00 this morning he woke up and felt off balance . Denies any shortness of breath or difficulty breathing. Denies dizziness or lightheadedness, but states that when he walks he feels like he is veering off to the left side . Denies any unilateral weakness. Alert and oriented x4. Related Data Home Medications Medication Instructions Recorded Confirmed amlodipine 10 mg tablet 10 mg PO DAILY 05/27/20 09/01/21 ezetimibe 10 mg tablet 10 mg PO DAILY 05/27/20 09/01/21 lisinopril 20 mg tablet 20 mg PO DAILY 05/27/20 09/01/21 rosuvastatin 40 mg tablet 40 mg PO DAILY 05/27/20 09/01/21 Allergies Allergy/AdvReac Type Severity Reaction Status Date / Time No Known Allergies Allergy Unknown Verified 03/12/22 11:27 Review of Systems Review of Systems: CONSTITUTIONAL: Denies fever, chills, or sweats. EYES: Denies visual changes, redness, or discharge. ENT: Denies rhinorrhea, congestion, sore throat, or otalgia. CARDIOVASCULAR: Denies chest pain, palpitations, or edema. RESPIRATORY: Denies cough or dyspnea. GASTROINTESTINAL: Denies abdominal pain, nausea, vomiting, or diarrhea. GENITOURINARY: Denies dysuria or hematuria. SKIN: Denies rash or itching. MUSCULOSKELETAL: Denies back pain, joint pain, or myalgia. NEUROLOGIC: Denies headache, numbness, dizziness, or weakness. PSYCHIATRIC: Denies anxiety or depression. [facility] Past Medical History Medical History Bladder cancer Coronary artery disease involving autologous artery coronary bypass graft Hypertension Surgical History Surgical History History of coronary angioplasty with insertion of stent History of tonsillectomy Hx of CABG Social History Social History Smoking status: Never smoker Alcohol intake: never Substance use: never Gender identity (if verbalized by the patient): Male Spiritual care concerns: No Exam Narrative: GENERAL: Well-appearing, well-nourished, no physical limitations, and in no acute distress. HEAD: Normocephalic, atraumatic. EYES: Conjunctivae normal, PERRLA and EOMI. CHEST: Clear to auscultation. No respiratory distress. No wheezes rales or rhonchi. HEART: Regular rate and rhythm. No murmur heard. Normal peripheral pulses. BACK: No CVA tenderness; No cervical/thoracic/lumbar tenderness, step-offs, bony abnormality; FROM EXTREMITIES: Normal range of motion. No edema. No clubbing or cyanosis. -SLE RLE SKIN: Warm, dry, no rash. No noted wounds NEURO: No focal deficits. Alert and oriented x3. MAEW. CN's II-XI intact bilaterally, normal gait. Strength equal bilaterally PSYCH: Cooperative. Normal mood and affect. Course Vital Signs Vital signs: Vital Signs Temperature 36.6 C 03/12/22 11:29 Pulse Rate 62 03/12/22 11:29 Respiratory Rate 18 03/12/22 11:29 Blood Pressure 153/72 H 03/12/22 11:29 Pulse Oximetry 98 03/12/22 11:29 Oxygen Delivery Room Air 03/12/22 11:29 Temperature 36.6 C 03/12/22 11:29 Pulse Rate 65 03/12/22 14:54 Respiratory Rate 18 03/12/22 14:54 Blood Pressure 133/68 03/12/22 11:54 Pulse Oximetry 96 03/12/22 14:54 Oxygen Delivery Room Air 03/12/22 11:29 Medical Decision Making Vital Signs Vital Signs: Vital Signs Temperature 36.6 C 03/12/22 11:29 Pulse Rate 62 03/12/22 1
[2022-03-12 12:11] LABS: Basophils Absolute Auto 0.1 K/mm3 (0.0-0.1); Basophils Percent Auto 0.8 % (0.2-1.2); Eosinophils Absolute Auto 0.3 K/mm3 (0-0.3); Hematocrit 53.3 % (42.0-52.0); Hemoglobin 17.5 g/dL (14.0-18.0); Lymphocytes Absolute Auto 2.77 K/mm3 (0.9-3.2); Lymphocytes Percent Auto 26.5 % (18.3-44.2); Mean Corpuscular HGB Conc 32.8 g/dl (32-36); Mean Corpuscular Volume 91.4 fl (80-100); Monocytes Absolute Auto 1.1 K/mm3 (0.1-0.6); Monocytes Percent Auto 10.2 % (2.6-8.5); Neutrophils Absolute Auto 6.1 K/mm3 (1.3-6.7); Neutrophils Percent Auto 58.5 % (45.5-73.1); Platelet Count Result 189 k/mm3 (150-375); Red Blood Count 5.83 M/mm3 (4.6-6.20); Red Cell Distribution Width 15.2 % (11.5-14.5); White Blood Count 10.5 K/mm3 (4.5-10.0)
[2022-03-12 12:19] LABS: Alanine Aminotransferase 22 U/L (6-50); Alkaline Phosphatase 71 U/L (38-126); Anion Gap 9 mmol/L (8-16); Aspartate Amino Transferase 24 U/L (17-59); Bilirubin,Total 0.6 mg/dL (0.2-1.3); Blood Urea Nitrogen 26 mg/dL (9-20); Calcium 9.7 mg/dL (8.4-10.2); Carbon Dioxide 26 mmol/L (22-30); Chloride 103 mmol/L (98-107); Estimated Glomerular Filt Rate 54; Glucose 127 mg/dL (65-110); Potassium 4.3 mmol/L (3.4-5.0); Sodium 138 mmol/L (137-145)
[2022-03-12 12:30] LABS: Troponin I 0.018 ng/mL (0.000-0.034)
[2022-03-12 12:48] LABS: Appearance Urine Clear (Clear); Bilirubin Urine 1+ (Negative); Blood Urine Trace-lysed (Negative); Color Urine Yellow (Yellow); Glucose Urine UA Negative (Negative); Ketones Urine Negative (Negative); Leukocyte Esterase Ur Negative LEU/UL (Negative); Nitrate Urine Negative (Negative); Protein Urine 1+ mg/dL (Negative); Urobilinogen Urine 0.2 mg/dL (<2.0); pH Urine 6.5 (5.0-9.0)
[2022-03-12 12:54] LABS: Squamous Epithelial Cell Urine Rare /hpf (Few)
[2022-03-12 13:09] LABS: Add Urine Microscopic? YES
[2022-03-12] MEDS: ONDANSETRON INJ 4 MG/2 ML VIAL IV PUSH (13:29)
[2022-03-12] MEDS: MORPHINE SULFATE (*CRX) 4 MG/ML INJ IV PUSH (13:30)
[2022-03-12] MEDS: SODIUM CHLORIDE 0.9% IV 1,000 ML 999 ML IV CONT (14:17)
[2022-03-12 14:18] LABS: Influenza A QL RT-PCR Negative (Negative); Influenza B QL RT-PCR Negative (Negative); SARS-CoV-2 RNA PCR Negative
[2022-03-12 15:18] LABS: Troponin I 0.021 ng/mL (0.000-0.034)
== END 2022-03-12 16:01 | disposition home or self-care (01) ==
PROVIDERS: Emergency Provider Nurse Practitioner Family
DX: M54.12 Radiculopathy, cervical region (principal); M54.30 Sciatica, unspecified side; Z20.822 Contact with and (suspected) exposure to COVID-19; I10 Essential (primary) hypertension; I25.10 Atherosclerotic heart disease of native coronary artery without angina pectoris
CPT/HCPCS: 36415; 70450; 71046; 72040; 80053; 81001; 84484; 85025; 87086; 87088; 87636; 93005; 96361; 96374; 96375; 99284; J2270; J2405; J7030

== ENCOUNTER 2022-05-22 21:27 | Emergency (ER) | payer OTHER, MEDICARE, SELFPAY ==
[2022-05-22 21:42] VITALS: BP 161/137; PULSE 76; RESP 20; TEMP 36.3; O2SAT 97
[2022-05-22 22:17] LABS: Appearance Urine Turbid (Clear); Bacteria Urine Rare /hpf; Bilirubin Urine Negative (Negative); Blood Urine 3+ (Negative); Glucose Urine UA Negative (Negative); Ketones Urine Negative (Negative); Leukocyte Esterase Ur 2+ LEU/UL (Negative); Need Manual Microscopic Reviewed; Nitrate Urine Negative (Negative); Protein Urine 2+ mg/dL (Negative); RBC Urine >100 /hpf (0-2); Specific Grav Ur 1.017 (1.001-1.035); Squamous Epithelial Cell Urine None seen /hpf (Few); Triple Phosphate Crystal Urine Present /hpf; WBC Urine 51-100 /hpf; pH Urine 8.5 (5.0-9.0)
[2022-05-22 22:19] LABS: Color Urine Light Red (Yellow)
[2022-05-22 22:20] LABS: Add Urine Microscopic? YES
[2022-05-22 23:53] VITALS: BP 147/73; PULSE 67; RESP 18; TEMP 36.6; O2SAT 99
[2022-05-23 01:32] VITALS: BP 136/75; PULSE 69; RESP 24; O2SAT 97
--- NOTE | 2022-05-23 02:37 | ED.GENADULT ---
HPI - General Adult General Chief complaint: Urogenital-Male Stated complaint: hasn't urinated since 0300 Time Seen by Provider: 05/23/22 01:34 History of Present Illness HPI narrative: A 72-year-old male presenting ED with chief complaint of urinary retention. Patient hasn't been able to urinate since 3:00 a.m. yeseterday Patient started experience suprapubic abdominal pain and then came to the emergency room. A Valladares was placed in triage which relieved the patient's symptoms. The patient has never had urinary retention in the past. He did start several medications,cycobenzapine, methylprednisolone and ropinirole in the last 2 weeks. He denies urinary symptoms such as urgency frequency or dysuria. Patient does have a history of bladder cancer and follows with the [facility]. Patient denies systemic signs of illness such as fever chills nausea vomiting diarrhea. Related Data Home Medications Medication Instructions Recorded Confirmed amlodipine 10 mg tablet 10 mg PO DAILY 05/27/20 09/01/21 ezetimibe 10 mg tablet 10 mg PO DAILY 05/27/20 09/01/21 lisinopril 20 mg tablet 20 mg PO DAILY 05/27/20 09/01/21 rosuvastatin 40 mg tablet 40 mg PO DAILY 05/27/20 09/01/21 Allergies Allergy/AdvReac Type Severity Reaction Status Date / Time No Known Allergies Allergy Unknown Verified 05/23/22 01:38 [facility] Past Medical History Medical History Bladder cancer Coronary artery disease involving autologous artery coronary bypass graft Hypertension Surgical History Surgical History History of coronary angioplasty with insertion of stent History of tonsillectomy Hx of CABG Social History Social History Smoking status: Never smoker Alcohol intake: never Substance use: never Gender identity (if verbalized by the patient): Male Spiritual care concerns: No Exam Narrative: APPEARANCE: No apparent distress. Patient is pleasant polite Head: atraumatic. EYES: EOMI, NOSE: Atraumatic NECK: Trachea midline RESPIRATORY: No increased rate of breathing CARDIOVASCULAR: RRR, ABDOMINAL: no suprapubic tenderness, no guarding no rebound, no CVA tenderness, Valladares in place with reddish urine MUSCULOSKELETAl: No obvious deformities NEURO: Alert. Moving 4/4 extremities SKIN:: Warm, dry. Normal color PSYCHIATRIC: Normal affect Course Vital Signs Vital signs: Vital Signs Temperature 97.4 F L 05/22/22 21:42 Pulse Rate 76 05/22/22 21:42 Respiratory Rate 20 05/22/22 21:42 Blood Pressure 161/137 H 05/22/22 21:42 Pulse Oximetry 97 05/22/22 21:42 Oxygen Delivery Room Air 05/22/22 21:42 Temperature 97.9 F 05/22/22 23:53 Pulse Rate 69 05/23/22 01:32 Respiratory Rate 24 H 05/23/22 01:32 Blood Pressure 136/75 05/23/22 01:32 Pulse Oximetry 97 05/23/22 01:32 Oxygen Delivery Room Air 05/23/22 01:32 Medical Decision Making MDM Narrative Medical decision making narrative: -Presentation: 72-year-old male presenting with urinary retention. -DDX includes but is not limited to: BPH, UTI, recurrent bladder cancer -Co-morbidities complicating care: advanced age, bladder cancer -Social determinants of health: patient works in an auto shop, lives alone -External Chart Review: none -Hx from independent Sources: son at bedside -Discussion of Management/Consultants: none -Independent interpretation of studies: urinalysis showed 511 white blood cells, 100 red blood cells, +2 leuk esterase and +3 blood. This is consistent with infection the patient will be treated. Dx tests considered but not ordered: Patient has stable vital signs and is well appearing. No indication for lab work at this time. -Procedures: Valladares leg bag -Interventions: 1 g ceftriaxone -Shared decision making / Disposition: 72-year-old male
[2022-05-23 03:30] VITALS: BP 152/77; PULSE 70; RESP 14; O2SAT 97
== END 2022-05-23 03:30 | disposition home or self-care (01) ==
PROVIDERS: Emergency Provider Emergency Medicine
DX: N39.0 Urinary tract infection, site not specified (principal); R33.9 Retention of urine, unspecified; I25.810 Atherosclerosis of coronary artery bypass graft(s) without angina pectoris; I10 Essential (primary) hypertension; Z95.5 Presence of coronary angioplasty implant and graft; Z95.1 Presence of aortocoronary bypass graft; Z85.51 Personal history of malignant neoplasm of bladder; Z79.82 Long term (current) use of aspirin
CPT/HCPCS: 51702; 81001; 87086; 87088; 96365; 99284; J0696

== ENCOUNTER 2022-06-06 11:33 | Outpatient (CLI) | payer OTHER, MEDICARE, SELFPAY ==
[2022-06-06 12:28] LABS: Hemoglobin A1C 6.5 % (<5.7)
[2022-06-06 13:24] LABS: Hepatitis C Virus Antibody Negative (Negative)
== END 2022-06-06 11:34 | disposition home or self-care (01) ==
LOC: ANHLAB 11:37
PROVIDERS: Visit Provider Nurse Practitioner Family
DX: R73.9 Hyperglycemia, unspecified (principal)
CPT/HCPCS: 36415; 83036; 86803

== ENCOUNTER 2022-09-23 08:16 | Outpatient (CLI) | payer OTHER, MEDICARE, SELFPAY ==
[2022-09-23 09:21] LABS: Alanine Aminotransferase 25 U/L (6-50); Albumin Level 4.4 g/dL (3.5-5.1); Alkaline Phosphatase 58 U/L (38-126); Anion Gap 9 mmol/L (8-16); Aspartate Amino Transferase 24 U/L (17-59); Bilirubin,Total 0.3 mg/dL (0.2-1.3); Blood Urea Nitrogen 26 mg/dL (9-20); Calcium 9.8 mg/dL (8.4-10.2); Carbon Dioxide 25 mmol/L (22-30); Chloride 106 mmol/L (98-107); Cholesterol 107 mg/dL (0-200); Estimated Glomerular Filt Rate 54; Glucose 109 mg/dL (65-110); HDL Direct 44 mg/dL; Hemoglobin A1C 6.1 % (<5.7); Potassium 3.7 mmol/L (3.4-5.0); Sodium 140 mmol/L (137-145); Triglycerides 71 mg/dL (<150)
[2022-09-23 09:32] LABS: LDL Cholesterol Direct 45 mg/dL
[2022-09-23 09:38] LABS: MALB Creatinine Ratio 33.3 mg/g (0-30); Microalbumin Urine Random 26.6 mg/L (0-16.7)
== END 2022-09-23 08:17 | disposition home or self-care (01) ==
PROVIDERS: Visit Provider Nurse Practitioner Family
DX: E11.69 Type 2 diabetes mellitus with other specified complication (principal); E78.2 Mixed hyperlipidemia
CPT/HCPCS: 36415; 80053; 80061; 82043; 82565; 83036

== ENCOUNTER 2024-10-25 11:52 | Outpatient (CLI) | payer OTHER, MEDICARE, SELFPAY ==
--- OUTSIDE RECORDS SUMMARY | 2024-10-25 11:30 | XMS_ITS | Encounter Summary ---
Author Organization [facility] Healthcare Address [address] [place] [address] Care Team Providers Care Machine Tool Technology Instructor Name Role Phone Solange Zazueta NP Primary Care Provider [phone] Reason for Visit * Reason Comments Medicare Annual Wellness Visit Initial P atient will complete labs at [facility] after appointment todayRefuses pneumonia vaccine Encounter Details Date Type Department Care Team (Latest Contact Info) Description 10/25/2024 11:30 AM CDT Office Visit [facility] Medical Group Family Medicine [address] [place] [address] Solange Zazueta NP [address] [facility] [address] [place] [address] Encounter for Medicare annual wellness exam (Primary Dx); Hypertension associated with diabetes (HCC); BMI 32.0-32.9,adult; Obesity (BMI 30-39.9); Mixed hyperlipidemia due to type 2 diabetes mellitus (HCC) Social History Tobacco Use Types Packs/Day Years Used Date Smoking Tobacco: Every Day Cigarettes Smokeless Tobacco: Never Comments:Smoking History Pac ks/day: 12 Cigars Alcohol Use Standard Drinks/Week Comments Yes 0 (1 standard drink = 0.6 oz pur e alcohol) PHQ-2 Answer Date Recorded PHQ-2 Total Score (If total score is 3 or more points, staff should administer the PHQ-9) 0 10/25/2024 Sex and Gender Information Value Date Recorded Sex Assigned at Not on file 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 Gender Identity Not on file Sexual Orientation Not on file documented as of this encounter Last Filed Vital Signs Vital Sign Reading Time Taken Comments Blood Pressure 138/62 10/25/2024 10:50 AM CDT Pulse 59 10/25/2024 10:50 AM CDT Temperature 36.8 C (98.2 F) 10/25/2024 10:50 AM CDT Respiratory Rate - - Oxygen Saturation 95% 10/25/2024 10:50 AM CDT Inhaled Oxygen Concentration - - Weight 97.5 kg (215 lb) 10/25/2024 10:50 AM CDT Height 172.7 cm (5' 8) 10/25/2024 10:50 AM CDT Body Mass Index 32.69 10/25/2024 10:50 AM CDT documented in this encounter Patient Instructions * Patient Instructions* Solange Zazueta NP - 10/25/2024 11:30 AM CDT Continue all medications as directed. Have lab work completed. Contact the office with any questions or concerns. Follow-up in 6 months or sooner as needed documented in this encounter Miscellaneous Notes * Assessment & Plan Note - Naty Gonzalez MA - 10/25/2024 10:51 AM CDT Associated Problem(s): BMI 31.0-31.9,adult Discussed the patients BMI: The BMI is above average BMI management is complete. BMI follow-up includes: Nutrition Counseling and education provided documented in this encounter Plan of Treatment Scheduled Orders Name Type Priority Associated Diagnoses Orde r Schedule Creatinine Lab Routine Encounter for Medicare annual wellness exam Expected: 10/28/2024, Expires: 10/25/2025 Albumin Creatinine Ratio, Urine Lab Routine Encounter for Medicare annual wellness exam Expected: 10/28/2024, Expires: 10/25/2025 Comprehensive metabolic panel Lab Routine Encounter for Medicare annual wellness exam Expected: 10/28/2024, Expires: 10/25/2025 Lipid panel Lab Routine Mixed hyperlipidemia due to type 2 diabetes mellitus (HCC) Expected: 10/28/2024, Expires: 10/25/2025 Hemoglobin A1c Lab Routine Encounter for Medicare annual wellness exam Mixed hyperlipidemia due to type 2 diabetes mellitus (HCC) Expected: 10/28/2024, Expires: 10/25/2025 documented as of this encounter Visit Diagnoses Diagnosis Encounter for Medicare annual wellness exam- Primary Hypertension associated with diabetes (HCC) Unspecified essential hypertension BMI 32.0-32.9,adult Obesity (BMI 30-39.9) Mixed hyperlipidemia due to type 2 diabetes mellitus (HCC) documented in this encounter Care Teams Machine Tool Technology Instructor Relationship Specialty Start Date End Date Solange Zazueta NP [address] [facility] [address] [place] [address] PCP - General Internal Medicine 05/06/22 documented as of this encounter
[2024-10-25 12:58] LABS: Hemoglobin A1C 6.3 % (<5.7)
[2024-10-25 13:01] LABS: MALB Creatinine Ratio 48.7 mg/g (0-30)
[2024-10-25 13:08] LABS: Alanine Aminotransferase 16 U/L (6-50); Albumin Level 4.4 g/dL (3.5-5.1); Alkaline Phosphatase 69 U/L (38-126); Anion Gap 8 mmol/L (4-12); Aspartate Amino Transferase 23 U/L (17-59); Bilirubin,Total 0.4 mg/dL (0.2-1.3); Blood Urea Nitrogen 22 mg/dL (9-20); Calcium 9.5 mg/dL (8.4-10.2); Carbon Dioxide 24 mmol/L (22-30); Chloride 106 mmol/L (98-107); Cholesterol 115 mg/dL (0-200); Estimated Glomerular Filt Rate 53; Glucose 106 mg/dL (65-110); HDL Direct 33 mg/dL; Potassium 4.2 mmol/L (3.4-5.0); Sodium 138 mmol/L (137-145); Total Protein 7.2 g/dL (6.3-8.2); Triglycerides 98 mg/dL (<150)
--- OUTSIDE RECORDS SUMMARY | 2024-10-25 13:37 | XMS_ITS | Clinical Summary ---
Author Organization [facility] Address [address] [place] [address] Phone Care Team Providers Care Guncotton Packer Name Role Phone Unavailable Primary Care Provider Unavailabl e Allergies No known active allergies Medications ASPIRIN 81 PO 81 mg. 08/14/2010 Activ e amLODIPine (NORVASC) 10 MG tablet Take 10 mg by mouth daily. 10/20/2017 Active chlorthalidone (HYGROTON) 25 MG tablet Take 25 mg by mouth 1 (one) time each day. 3 03/25/2018 Active hydroCHLOROthia zide (MICROZIDE) 12.5 MG capsule TAKE 1 CAPSULE BY MOUTH EVERY DAY IN THE MORNING 11 04/13/2018 Active lisinopril (PRINIVIL,ZESTR [place]) 20 MG tablet Take 20 mg by mouth daily. 06/17/2018 Active metoprolol tartrate (LOPRESSOR) 25 MG tablet Take 25 mg by mouth 2 (two) times a day. 3 05/05/2018 Active rosuvastatin (CRESTOR) 40 MG tablet TAKE 1 TABLET BY MOUTH EVERY DAY 11/04/2017 Active Active Problems Problem Noted Date Diagnosed Date Hyperglycemia 10/20/2017 Atrial fibrillation 12/09/2016 Body mass index 30+ - obesity 12/09/2016 Tobacco use 12/09/2016 Fracture of sternum 03/06/2015 History of coronary artery bypass grafting 01/02 Overview (06/21/2018): Overview: Hx of CABG Cerebrovascular disease 07/02/2013 Overview (06/21/2018): Overview: Cerebrovascular disease Coronary arteriosclerosis in [place] artery 07/02 Overview (06/21/2018): Overview: CRNRY ATHRSCL NATVE VSSL Essential hypertension 07/02/2013 Overview (06/21/2018): Overview: HYPERTENSION NOS Ex-smoker 07/02/2013 Overview (06/21/2018): Overview: Former smoker Intermittent claudication 07/02/2013 Overview (06/21/2018): Overview: Claudication Mixed hyperlipidemia 07/02/2013 Overview (06/21/2018): Overview: MIXED HYPERLIPIDEMIA Malignant neoplasm of bladder 09/19/2010 Overview (06/21/2018): Overview: Description: TURBT - 08/08/10 - high grade TCC per [facility] review, no muscle in specimen. 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 Family History Medical History Relation Comments Stroke Father Diabetes Mother Relation Status Comments Father Mother Social History Tobacco Use Types Packs/Day Years Used Date Smoking Tobacco: Heavy Smoker Smokeless Tobacco: Never Alcohol Use Standard Drinks/Week Comments Yes 0 (1 standard drink = 0.6 oz pur e alcohol) Sex and Gender Information Value Date Recorded Sex Assigned at Not on file Legal Sex Male 11:33 AM MDT Gender Identity Not on file Sexual Orientation Not on file Plan of Treatment Health Maintenance Due Date Last Done Comments Pneumococcal PPSV23/PCV13 65 + Years / Low and Medium Risk (1 of 2 - PCV) 01/27/2000 Influenza Vaccine (#1) 2024 Insurance [employer] - [place] ([facility])
--- OUTSIDE RECORDS SUMMARY | 2024-10-25 13:37 | XMS_ITS | Clinical Summary ---
Author Organization [facility] [place] [address] Address [address] [place] [address] Care Team Providers Care Principal Research Economist Name Role Phone Solange Zazueta NP Primary Care Provider [phone] Allergies No known active allergies Medications aspirin 81 mg tablet take 1 tablet (81MG) by oral route every day 0 08/15/19 11 Active dapagliflozin propanediol (Farxiga) 10 mg tabletIndications:Hy pertension associated with diabetes (HCC),Mixed hyperlipidemia due to type 2 diabetes mellitus (HCC) Take 1 tablet (10 mg total) by mouth daily 90 tablet 1 03/31/19 24 Active azelastine (ASTELIN) 137 mcg (0.1 %) nasal sprayIndications:Jacinto tigo ADMINISTER 1 SPRAY INTO EACH NOSTRIL 2 TIMES A DAY DIRECTED 30 mL 1 07/20/19 24 Active lisinopril-hydroCHLO ROthiazide (ZESTORETIC) 20-12.5 mg per tabletIndications:Es sential hypertension TAKE 1 TABLET BY MOUTH EVERY DAY 90 tablet 2 02/15/20 24 Active amLODIPine (NORVASC) 10 mg tabletIndications:Es sential hypertension TAKE 1 TABLET BY MOUTH EVERY DAY 90 tablet 3 02/15/20 24 Active rosuvastatin (CRESTOR) 40 mg tabletIndications:Co ronary arteriosclerosis in [place] artery,Multiple-type hyperlipidemia TAKE 1 TABLET BY MOUTH EVERY DAY 90 tablet 3 02/15/20 24 Active ibuprofen (ADVIL,MOTRIN) 800 mg tabletIndications:Lo w back pain, unspecified back pain laterality, unspecified chronicity, unspecified whether sciatica present TAKE 1 TABLET BY MOUTH EVERY 8 HOURS NEEDED FOR PAIN 90 tablet 1 03/01/19 25 Active ezetimibe (ZETIA) 10 mg tabletIndications:Mu ltiple-type hyperlipidemia Take 1 tablet (10 mg total) by mouth daily 90 tablet 2 10/25/19 25 Active ezetimibe (ZETIA) 10 mg tabletIndications:Mu ltiple-type hyperlipidemia TAKE 1 TABLET BY MOUTH EVERY DAY 90 tablet 2 02/03/20 23 025 Discontin ued(Reord er) Active Problems Problem Noted Date Diagnosed Date Vertigo 12/01/2022 Mixed hyperlipidemia due to type 2 diabetes mary itus 06/24/2022 Arthralgia 06/24/2022 BMI 31.0-31.9,adult 06/02/2022 Assessment & Plan (10/25/2024 10:51 AM CDT): Discussed the patients BMI: The BMI is above average BMI management is complete. BMI follow-up includes: Nutrition Counseling and education provided Assessment & Plan (06/02/2022 10:49 AM CDT): Discussed the patients BMI: The BMI is above average BMI management is complete. BMI follow-up includes: Nutrition Counseling and education provided Right foot drop 06/02/2022 Neck pain 05/06/2022 Right sided sciatica 05/06/2022 Screening for colon cancer 05/06/2022 Restless leg syndrome 05/06/2022 Mild aortic valve sclerosis 04/01/2022 Class 1 obesity due to exces s calories without serious comorbidity with body mass index (BMI) of 30.0 to 30.9 in adult 12/31/2021 Overview (09/23/2022): Diet and exercise on a regular basis as tolerated Murmur, heart 12/31/2021 Muscle cramps 10/20/2017 Elevated blood sugar 10/20/2017 Hyperglycemia 10/20/2017 Tobacco use 12/09/2016 Atrial fibrillation 12/09/2016 Obesity with body mass index 30 or greater 12/09 Fracture of sternum 03/06/2015 Noncompliance with treatment 01/02/2015 Overview (05/24/2016): Noncompliance Hx of CABG 01/02/2015 Overview (05/24/2016): Hx of CABG Primary malignant neoplasm of bladder 01/02/2015 Overview (05/24/2016): Primary bladder malignant neoplasm Presence of aortocoronary bypass graft 5 Overview (05/06/2022): Overview: Hx of CABG Post percutaneous transluminal coronary angiopla sty 08/30/2013 Overview (05/24/2016): STATUS-POST PTCA Multiple-type hyperlipidemia 07/02/2013 Overview (05/21/2016): MIXED HYPERLIPIDEMIA Former smoker 07/02/2013 Overview (05/21/2016): Former smoker Coronary arteriosclerosis in [place] artery 07/02 Overview (05/21/2016): CRNRY ATHRSCL NATVE VSSL Carotid bruit 07/02/2013 Overview (05/22/2016): Carotid artery bruit Cerebrovascular disease 07/02/2013 Overview (05/22/2016): Cerebrovascular disease Hypertension associated with diabetes 07/02/2013 Overview (05/22/2016): HYPERTENSION NOS Claudication 07/02/2013 Overview (05/22/2016): Claudication Intermittent claudication 07/02/2013 Overview (05/06/2022): Overview: Claudication Mixed hyperlipidemia 07/02/2013 Overview (05/06/2022): Overview: MIXED HYPERLIPIDEMIA Malignant neoplasm of urinary bladder 09/19/2010 Overview (05/28/2017): Description: TURBT - 08/08/10 - high grade TCC per [facility] review, no muscle in specimen. Malignant neoplasm of bladder 09/19/2010 Overview (05/06/2022): Overview: Description: TURBT - 08/08/10 - high grade TCC per [facility] review, no muscle in specimen. 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 The BMI is above average. BMI management plan is completed. BMI Follow-up includes: nutrition counseling, exercise counseling and education provided. Assessment & Plan (12/01/2022 9:13 AM CDT): Discussed the patients BMI: The BMI is above average BMI management is complete. BMI follow-up includes: Nutrition Counseling and education provided obesity BMI 33.0-33.9,adult 05/06/2022 06/02/2022 Assessment & Plan (05/06/2022 3:48 PM CDT): Discussed the patients BMI: The BMI is above average BMI management is complete. BMI follow-up includes: Nutrition Counseling and education provided Tobacco dependency 01/08/2021 Obesity (BMI 30-39.9) 12/09/20162022 Chronic coronary artery disease 03/06/2015 01/08/2021 Encounters Date Type Department Care Team Description 10/25/2024 11:30 AM CDT Office Visit [facility] Medical Group Family Medicine [address] [address] Solange Zazueta NP Encounter for Medicare annual wellness exam (Primary Dx); Hypertension associated with diabetes (HCC); BMI 32.0-32.9,adult; Obesity (BMI 30-39.9); Mixed hyperlipidemia due to type 2 diabetes mellitus (HCC) from Last 3 Months Immunizations Immunization Administration Dates Next Due Influenza, Unspecified 02/17/2024(Deferr ed: Patient Refused),03/31/2023(Deferred: Patient Refused),02/16/2023(Deferred: Patient Refused),02/16/2023(Deferred: Patient Refused),06/02/2022(Deferred: Patient Refused),02/16/2022(Deferred: Patient Refused),03/20/2021(Deferred: Patient Refused) Pneumococcal Conjugate PCV 13 06/24/2022(Deferre d: Patient Refused) Pneumococcal Conjugate Pcv20 06/24/2022( Deferred: Patient Refused),06/02/2022(Deferred: Patient Refused) Pneumococcal Polysaccharide PPV23 2022(Deferred: Patient Refused),02/16/2022(Deferred: Patient Refused) Surgical History Surgery Date Site/Laterality Comments CORONARY ARTERY BYPASS GRAFT Medical History Medical History Date Comments Hyperlipidemia Hypertension Coronary artery disease Bladder carcinoma (HCC) Family History Medical History Relation Name Comments Other Brother 2 Alive and well; Stroke Father Stroke; Cause o f : Stroke Diabetes type II Mother Other Mother Alive and well; Other Sister 2 Alive and well; Relation Name Status Comments Brother 1 Alive Brother 2 Father (Age 79) Mother Alive Sister 1 Alive Sister 2 Social History Tobacco Use Types Packs/Day Years Used Date Smoking Tobacco: Every Day Cigarettes Smokeless Tobacco: Never Tobacco Cessation:Ready to Q uit: Not Asked; Counseling Given: Not Answered Comments:Smoking History Packs/day: 12 Cigars Alcohol Use Standard Drinks/Week Comments Yes 0 (1 standard drink = 0.6 oz pur e alcohol) PHQ-2 Answer Date Recorded PHQ-2 Total Score (If total score is 3 or more points, staff should administer the PHQ-9) 0 10/25/2024 Sex and Gender Information Value Date Recorded Sex Assigned at Not on file Legal Sex Male 9:30 AM COOK STARCH Gender Identity Not on file Sexual Orientation Not on file Obstetrics History Last Filed Vital Signs Vital Sign Reading Time Taken Comments Blood Pressure 138/62 10/25/2024 10:50 AM CDT Pulse 59 10/25/2024 10:50 AM CDT Temperature 36.8 C (98.2 F) 10/25/2024 10:50 AM CDT Respiratory Rate 16 09/23/2022 7:20 AM CDT Oxygen Saturation 95% 10/25/2024 10:50 AM CDT Inhaled Oxygen Concentration - - Weight 97.5 kg (215 lb) 10/25/2024 10:50 AM CDT Height 172.7 cm (5' 8) 10/25/2024 10:50 AM CDT Body Mass Index 32.69 10/25/2024 10:50 AM CDT Plan of Treatment Health Maintenance Due Date Last Done Comments Colon Cancer Screening-Colonoscopy 1950 Dilated Eye Exam 1950 Foot Exam 1950 DTaP/Tdap/Td Vaccine (1 - Tdap) 1961 Hepatitis B Screening 01/27/1968 Zoster Vaccine (1 of 2) 01/27/2000 Abdominal Aortic Aneurysm (A AA) Screen 2015 Hemoglobin A1C 03/26/2023 09/23/2022, 06/06/2022 Albumin Creatinine Ratio, Urine 09/24/2023 eGFR 09/24/2023 09/23/2022 Influenza Vaccine (#1) 2024 Lipid Panel 11/09/2024 11/10/2023, 0 09/2022, 12/31/2021, Additional history exists Depression Screening 10/25/2025 10/25/2024, 03/31/2023, 12/01/2022, Additional history exists Fall Risk Assessment 10/25/2025 10/25/2024, 03/31/2023, 12/01/2022, Additional history exists Well Visit 65+ 10/25/2025 10/25/2024, 090 10/2024, 06/02/2022 Hepatitis C Screening Completed 06/06/2022 Pneumococcal vaccine 65+ Discontinued Procedures Procedure Name Priority Date/Time Associated Diagnosis Comments POCT LIPID PANEL Routine 11/10/2023 9:23 AM CDT Hypertension associated with diabetes (HCC) COMPREHENSIVE METABOLIC PANEL Routine 09/23/2022 Hypertension associated with diabetes (HCC) HEMOGLOBIN A1C Routine 09/23/2022 Hypertension associated with diabetes (HCC) Mixed hyperlipidemia due to type 2 diabetes mellitus (HCC) ALBUMIN CREATININE RATIO, URINE Routine 09/23/2022 Mixed hyperlipidemia due to type 2 diabetes mellitus (HCC) Hypertension associated with diabetes (HCC) HEPATITIS C ANTIBODY Routine 06/06/2022 Encounter for hepatitis C screening test for low risk patient from Last 3 Months or Most Recently Relevant to Health Maintenance Results * POCT lipid panel (11/10/2023 9:23 AM CDT) Cholesterol, POC 103 mg/dL Comment:GLU = 111 HDL, POC 26 mg/dL Triglycerides, POC 89 mg/dL LDL Cholesterol POC 59 mg/dL Chol/HDL Ratio, POC 2.2 Non-HDL Cholesterol, POC 77 mg/dL Cholesterol Total, POC 103 mg/dL Capillary blood 11/10/2023 9 :23 AM CDT Igor Mijares MD POINT OF CARE TEST ORDER DUNIA Final Result * Albumin Creatinine Ratio, Urine (09/23/2022) Urine 09/23/2022 Solange Zazueta DRAPERY CUTTER MACHINE LAB URINE ORDERABLES Final Re sult EXTERNAL LAB * (ABNORMAL) Hemoglobin A1c (09/23/2022) SCRIBED Hemoglobin A1c 6.1 <5.7 - >5.7 % EXTERNAL LAB Blood 09/23/2022 Solange Zazueta DRAPERY CUTTER MACHINE LAB BLOOD ORDERABLES Final Re sult EXTERNAL LAB * Comprehensive metabolic panel (09/23/2022) SCRIBED Sodium 140 137 - 145 mmol/L EXTERNAL LAB SCRIBED Potassium 3.7 3.4 - 5.0 mmol/L EXTERNAL LAB SCRIBED Chloride 106 98 - 107 mmol/L EXTERNAL LAB SCRIBED Carbon Dioxide 25 22 - 30 mmol/L EXTERNAL LAB SCRIBED Anion Gap 9 8 - 16 mmol/L EXTERNAL LAB SCRIBED Urea Nitrogen (BUN) n/a n/a - n/a mg/dl EXTERNAL LAB SCRIBED Creatinine 1.30 0.7 - 1.3 mg/dl EXTERNAL LAB SCRIBED Glucose 109 65 - 110 mg/dl EXTERNAL LAB SCRIBED Calcium 9.6 8.4 - 10.2 mg/dl EXTERNAL LAB SCRIBED Bilirubin 0.3 0.2 - 1.3 mg/dl EXTERNAL LAB SCRIBED Plasma Protein 7.0 6.3 - 8.2 g/dl EXTERNAL LAB SCRIBED Albumin 4.4 3.5 - 5.1 g/dl EXTERNAL LAB SCRIBED Alkaline Phosphatase 58 38 - 125 Units/L EXTERNAL LAB SCRIBED Alanine Transaminase (ALT) n/a n/a - n/a Units/L EXTERNAL LAB SCRIBED Aspartate Transaminase (AST) n/a n/a - n/a Units/L EXTERNAL LAB SCRIBED eGFR n/a n/a - n/a EXTERNAL LAB SCRIBED eGFR n/a n/a - n/a EXTERNAL LAB Blood 09/23/2022 us Solange Zazueta NP LAB BLOOD ORDERABLES Final Re sult EXTERNAL LAB * Hepatitis C antibody (06/06/2022) SCRIBED HCV ab neg EXTERNAL LAB Blood 06/06/2022 Solange Zazueta NP LAB MICROBIOLOGY - GENERAL OR DERABLES Final Result EXTERNAL LAB from Last 3 Months or Most Recently Relevant to Health Maintenance Insurance [address] [place] [address] [facility] CHOICE PLUS MEDICARE HMO [facility] CHOICE PLUS MEDICARE HMO Care Teams Principal Research Economist Relationship Specialty Start Date End Date Solange Zazueta NP [address] [address] PCP - General Internal Medicine 05/06/22
== END 2024-10-25 11:53 | disposition home or self-care (01) ==
PROVIDERS: PCP Family Medicine; Visit Provider Family Medicine
DX: Z00.00 Encounter for general adult medical examination without abnormal findings (principal); E11.69 Type 2 diabetes mellitus with other specified complication; E78.2 Mixed hyperlipidemia
CPT/HCPCS: 36415; 80053; 80061; 82043; 83036